=== PATIENT | male | born 1950 | race Caucasian/White ===

== ENCOUNTER 2017-01-09 08:30 | Emergency (ER) | payer BC ==
[~2017-01-09] VITALS: Ht 185.4 cm; Wt 92.4 kg
[~2017-01-09 08:30] MED LIST: ATEN-173 PO; CLC100 PO; EZET10TA63 PO; MELO15TA3 PO; OXYC-57 PO
[2017-01-09 08:33] VITALS: TEMP 36.5; Ht 185.4 cm; Wt 92.4 kg
[2017-01-09] MEDS ORDERED: ONDANSETRON INJ 2 MG/ML 2 ML VIAL IV STA (08:52)
[2017-01-09] MEDS ORDERED: KETOROLAC TROMETHAMINE 30 MG/ML VIAL IV STA (08:52)
[2017-01-09] MEDS ORDERED: MoRPHine SULFATE 10 MG/ML CARP/VIAL IV STA (08:52)
[2017-01-09] MEDS ORDERED: DEXAMETHASONE SOD INJ 10 MG/ML VIAL IV ONE (09:00)
[2017-01-09] MEDS ORDERED: PRLSR20 PO (09:26)
[2017-01-09] MEDS ORDERED: ASPI81TA28 PO (09:26)
[2017-01-09] MEDS ORDERED: OMEG10007 PO (09:26)
[2017-01-09] MEDS ORDERED: MoRPHine SULFATE 4 MG/ML 1 ML CARP\\VIAL IV STA ×2 (11:21→12:54)
--- NOTE | 2017-01-09 11:32 | EMERGENCY ROOM VISIT NOTE ---
History First contact with patient: 08:37 Chief Complaint: BACK PAIN Stated Complaint: BACK PAIN History of Present Illness The patient is a 66 year old male who presents to the Emergency Room with complaints of intractable back pain. The patient states that he is under the care of Dr. Loo for chronic low back pain and right radiculopathy. The patient states that he was on Percocet 5/325 mg tablets 2 tablets every 4 hours for 2 weeks along with prednisone without any relief of his pain. He states that he went to Dr. Loo yesterday telling him that the Percocet was not working for the pain. He then gave him tramadol. The patient states he took a tramadol yesterday and got sweaty and his heart was racing and couldn't sleep. He does not have any other pain medications at home. The patient states that he went to the clinic this morning thinking he could see Dr. loo but they told him he was in surgery. The patient therefore came to the emergency room for pain control. The patient states in the past he has tried the pain clinic and therapy without any relief of his pain. He had similar symptoms 8 years ago on his left side and was admitted and had surgery. The patient denies any loss of bowel or bladder control. The patient denies any saddle anesthesia. The patient states that the pain is a sharp pain in his right hip and goes down the right leg. Review of Systems 10 system review was performed and was negative unless stated otherwise history of present illness. Past Medical/Surgical History Prior back surgery Hypertension Social History Smoking Status: Never Smoker Smokeless Tobacco Use: No Alcohol Use: occasionally Drug Use: none Marital Status: Housing Status: lives with significant other Current/Historical Medications Scheduled Aspirin (Aspirin Ec), 81 MG PO DAILY Atenolol (Tenormin), 25 MG PO DIRECTED Docusate Sodium (Colace *), 100 MG PO BID Ezetimibe (Zetia), 10 MG PO DAILY Fish Oil ([place]lysses-3), 1 CAP PO DAILY Omeprazole (Prilosec), 20 MG PO DAILY Oxycodone/Acetaminophen 5MG/325MG (Percocet 5MG/325MG), 2 TABLETS PO Q4HR PRN Allergies Coded Allergies: Ketorolac Tromethamine (Verified Adverse Reaction, Severe, DELIRIUM, ) Physical Exam Vital Signs Date Time Temp Pulse Resp B/P (MAP) Pulse Ox O2 Delivery O2 Flow Rate FiO2 01/09/17 11:15 65 18 134/78 96 Room Air 01/09/17 09:32 60 18 132/85 98 Room Air 01/09/17 08:33 36.5 79 20 162/94 98 Room Air Physical Exam PHYSICAL EXAM: Vital Signs were reviewed: Reviewed Nurse's notes and agree. GENERAL: 66-year-old white male appears uncomfortable secondary to pain. MENTAL STATUS: Alert and oriented in no acute distress. LUNGS: Clear to auscultation without wheezes rales or rhonchi. CARDIAC: Regular rate and rhythm without murmur. LUMBAR SPINE: No gross bony abnormality noted. Patient is nontender to palpation over the spinous processes. He is tender to palpation over the right lower paravertebral region, left side nontender. He has limited range of motion in all directions secondary to pain. Muscle strength is 5 out of 5 bilateral lower extremities and symmetrical. NEURO: Patient is able to heel and toe walk without difficulty. Bilateral positive straight leg raise on the right. Patellar and Achilles reflexes are 2+. Sensation is intact to pinprick bilateral lower extremities. Medical Decision & Procedures Medications Administered Medications (Trade) Dose Ordered Sig/Chidi Route Start Time Stop Time Status Last Admin Dose Admin Dexamethasone Sodium Phosphate (Decadron Inj) 10 mg NOW ONCE IV 01/09/17 09:00 01/09/17 09:01 DC 01/09/17 09:09 10 MG Morphine Sulfate (MoRPHine SULFATE INJ) 6 mg NOW STAT IV 01/09/17 08:52 01/09/17 08:54 DC 01/09/17 09:10 6 MG Ondansetron HCl (Zofran Inj) 4 mg NOW STAT IV 01/09/17 08:52 01/09/17 08:54 DC 01/09/17 09:09 4 MG Morphine Sulfate (MoRPHine SULFATE INJ) 4 mg NOW STAT IV 01/09/17 11:21 01/09/17 11:22 DC 01/09/17 11:26 4 MG ED Course The patient was evaluated. The patient's EMR and medication list were reviewed. I also obtained the MRI which she performed at [facility] on 2016. This showed multilevel moderate to severe degenerative disc disease as well as global disparaging with high-grade foraminal narrowing at multiple levels. IV access was obtained. The patient was given morphine 6 mg IV and Decadron 10 mg IV. He was also given Zofran 4 mg IV push for associated nausea. The patient was reevaluated on multiple occasions. He received an additional 4 mg of morphine IV. I spoke with Dr. Tobar about the patient as well as the vocational case manager to have the patient admitted for at least observation for pain control. Dr. Tobar's PA, Mary evaluated the patient. She got him an appointment tomorrow in the office and the patient is in agreement to go home on pain medications. She will be prescribing pain medications as well as Valium for the patient. The patient was in agreement with treatment plan and has an appointment scheduled tomorrow at 9:40 AM. The patient was discharged home in stable condition. Medical Decision The patient has failed outpatient treatment for his intractable chronic back pain. Dr. Loo would not be available to operate on the patient until next week therefore the patient was in agreement to continue outpatient treatment at this time. Impression Primary Impression: Intractable low back pain Departure Information Dispostion Home / Self-Care Condition GOOD Referrals Meg Yan (PCP) Aman Loo M.D. Forms HOME CARE DOCUMENTATION FORM, IMPORTANT VISIT INFORMATION Patient Instructions My [employer] [place] Additional Instructions Take medications as prescribed by your spinal surgeon. Appointment tomorrow at 9:40 AM with Noah. Further evaluation and treatment per spinal surgery.
[2017-01-09] MEDS ORDERED: DIAZ-165 PO (12:42)
[2017-01-09] MEDS ORDERED: HYDR-5688 PO (12:42)
--- NOTE | 2017-01-09 12:50 | Orthopedic Consultation ---
Orthopedic Consultation Date of Consultation: Jan 09, 2017. Attending Physician: History of Present Illness 66 yo gentleman known to Dr. Loo. Hes' had prior surgery by Dr. Loo 8 years ago. He has recently been into the office for same complaints. he reports for the past 3-4 weeks he's had severe Right leg pain including buttock, thigh, calf, dorsum foot. Left leg aymptomatic. Denies bowel/bladder dysfunction. He's been given recent oral steroids and Percocet by Dr. Loo's office. Trialed PT as well. He reports any type of standing or activity reproduces pain. Sitting in her semireclined position or flexing his right leg is pale. Past Medical/Surgical History Medical Problems: (1) Intractable low back pain Status: Acute Social History Smoking Status: Never Smoker Smokeless Tobacco Use: No Drug Use: none Marital Status: Housing Status: lives with significant other Allergies Coded Allergies: Ketorolac Tromethamine (Verified Adverse Reaction, Severe, DELIRIUM, ) Home Medications Scheduled Aspirin (Aspirin Ec), 81 MG PO DAILY Atenolol (Tenormin), 25 MG PO DIRECTED Docusate Sodium (Colace *), 100 MG PO BID Ezetimibe (Zetia), 10 MG PO DAILY Fish Oil ([place]atter-3), 1 CAP PO DAILY Omeprazole (Prilosec), 20 MG PO DAILY Oxycodone/Acetaminophen 5MG/325MG (Percocet 5MG/325MG), 2 TABLETS PO Q4HR PRN Scheduled PRN Diazepam (Valium), 5 MG PO TID PRN for prn Hydrocodone/Acetaminophen 5MG/325MG (Thomas 5MG/325MG), 2 TABLETS PO Q4 PRN for Pain Physical Exam Date Time Temp Pulse Resp B/P (MAP) Pulse Ox O2 Delivery O2 Flow Rate FiO2 01/09/17 11:15 65 18 134/78 96 Room Air 01/09/17 09:32 60 18 132/85 98 Room Air 01/09/17 08:33 36.5 79 20 162/94 98 Room Air Neurologic/Psych: + motor weakness (intact), + pertinent finding (negative stright leg raising b/l) Lymphatic: + cervical node abnormality Assessment & Plan Follow up Noah Colon tomorrow at 9:40am at [facility]. Valium 5mg one po q8hrs prn #10 Thomas 5/325 1-2 po q 4 hrs prn #30
[2017-01-09 13:12] VITALS: BP 138/74; PULSE 68; O2SAT 95
[2017-01-23] MEDS ORDERED: OXYC1TAB3 PO (11:48)
== END 2017-01-09 13:11 | disposition home or self-care (01) ==
LOC: C.EDB 08:33
DX: M54.5 Low back pain (principal); R11.0 Nausea; I10 Essential (primary) hypertension; G89.29 Other chronic pain; M54.10 Radiculopathy, site unspecified; Z79.82 Long term (current) use of aspirin; Z79.899 Other long term (current) drug therapy; Z88.8 Allergy status to other drugs, medicaments and biological substances

== ENCOUNTER 2017-01-20 12:53 | Observation (INO) | payer BC ==
[~2017-01-20] VITALS: Ht 185.4 cm; Wt 95.2 kg
[2017-01-20] VITALS (7 sets, daily range): BP systolic 101–150; BP diastolic 67–95; PULSE 53–65; TEMP 36.4–36.6; O2SAT 94–96; Ht 185.4 cm; Wt 95.2 kg
[~2017-01-20 12:53] MED LIST changes: +ASPI81TA28 PO; +DIAZ-165 PO; +HYDR-5688 PO; -MELO15TA3 PO; +OMEG10007 PO; +PRLSR20 PO
[2017-01-20] MEDS ORDERED: FAMO20TA11 PO (14:36)
[2017-01-20] MEDS ORDERED: OXYC1TAB3 PO (14:37)
[2017-01-20] MEDS ORDERED: GABA-113 PO (14:39)
[2017-01-20] MEDS ORDERED: PSYL58.636 PO (14:47)
[2017-01-20] MEDS ORDERED: DOCU-94 PO (14:47)
[2017-01-20] MEDS ORDERED: VENL37.593 PO (14:48)
--- NOTE | 2017-01-20 14:50 | Anesthesiology Progress Note ---
Anesthesia Progress Note Date of Service Jan 20, 2017. Progress Notes Mr. Farfan is slated for a lumbar decompression with Dr. Loo on 01/21/17. Allergies to toradol (delerium). PSH to include back surgery (8 years ago) and tonsillectomy as a child without anesthesia complications. PMH significant for HTN (controlled), HLD, GERD (controlled), intractable back pain and depression. Patient is a never smoker with greater than 4 METS. Labs pending. Will order ECG as one wasn't found on file. Airway exam notable for MP 3 with FROM of neck. Patient advised to be NPO after midnight. Patient consented for GETA, all questions answered.
[2017-01-20] MEDS ORDERED: LORAZEPAM 1 MG TAB PO PRN (16:00)
[2017-01-20] MEDS ORDERED: PROMETHAZINE HCL INJ 12.5 MG in SODIUM CHLORIDE 0.9% 50ML 50 ML IV PRN (16:00)
[2017-01-20] MEDS ORDERED: NALOXONE HCL 0.4 MG/1 ML VIAL/CARP IV PRN (16:00)
[2017-01-20] MEDS ORDERED: ONDANSETRON INJ 2 MG/ML 2 ML VIAL IV PRN (16:00)
[2017-01-20] MEDS ORDERED: ACETAMINOPHEN 325 MG TAB PO PRN (16:00)
[2017-01-20] MEDS ORDERED: LORAZEPAM INJ 1 MG in SYRINGE 0 ML IV PRN (16:00)
[2017-01-20] MEDS ORDERED: IV FLUIDS COMPLETED PRN (16:15)
[2017-01-20] MEDS: SODIUM CHLORIDE 0.9% 1000ML 1,000 ML IV SCH (16:21)
[2017-01-20] MEDS: HYDROmorphone HCL 0.5MG/ML 50 ML CASSETTE IV PRN ×2 (16:23→19:09)
[2017-01-20 16:43] LABS: BASO % 0.3 %; BASO ABS # 0.02 K/uL (0-0.2); COMPLETE YES; EOS % 1.1 %; HEMATOCRIT 47.1 % (42-52); IG% 0.3 %; LYMPH % 27.9 %; LYMPH ABS # 1.96 K/uL (1.2-3.4); MEAN CELL VOLUME 89.7 fL (80-100); MEAN CORPUSCULAR HGB CONC 35.7 g/dl (32-36); MEAN PLATELET VOLUME 9.4 fL (7.4-10.4); MONO % 10.4 %; PLATELET COUNT 252 K/uL (130-400); RED BLOOD COUNT 5.25 M/uL (4.7-6.1); WHITE BLOOD COUNT 7.03 K/uL (4.8-10.8)
[2017-01-20 17:09] LABS: CALCIUM 9.7 mg/dl (8.5-10.1); CREATININE 0.81 mg/dl (0.60-1.40); POTASSIUM 3.6 mmol/L (3.5-5.1)
--- NOTE | 2017-01-20 17:29 | DIAGNOSTIC IMAGING REPORT ---
CHEST 2 VIEWS ROUTINE CLINICAL HISTORY: preop preoperative evaluation COMPARISON STUDY: 01/19/2009 FINDINGS: The bones soft tissues and hemidiaphragms are normal. The cardiomediastinal silhouette is normal. The lungs are clear. The pulmonary vasculature is normal. IMPRESSION: Negative chest. The above report was generated using voice recognition software. It may contain grammatical, syntax or spelling errors. Electronically signed by: Darshan Garcia M.D. 01/20/2017 5:27 PM Dictated Date/Time: 01/20/2017 5:27 PM
[2017-01-20] MEDS: DEXAMETHASONE INJ 8 MG in SYRINGE 0 ML IV SCH (17:47)
[2017-01-20] MEDS: GABAPENTIN 300 MG CAP PO SCH (20:58)
[2017-01-20] MEDS: FAMOTIDINE 20 MG TAB PO SCH (20:58)
[2017-01-21] MEDS: DEXAMETHASONE INJ 8 MG in SYRINGE 0 ML IV SCH ×2 (01:10→08:54)
[2017-01-21 03:17] VITALS: BP 120/75; PULSE 59; TEMP 36.7; O2SAT 93
[2017-01-21] MEDS: CEFAZOLIN 2000 MG/60 ML D5W 60 ML IV SCH ×2 (06:00→18:35)
[2017-01-21] MEDS: HYDROmorphone HCL 0.5MG/ML 50 ML CASSETTE IV PRN (07:08)
[2017-01-21 07:48] VITALS: BP 118/82; PULSE 66; TEMP 36.7; O2SAT 94
[2017-01-21 08:01] VITALS: O2SAT 94
[2017-01-21] MEDS: FAMOTIDINE 20 MG TAB PO SCH ×2 (08:53→21:13)
[2017-01-21] MEDS: EZETIMIBE 10MG TAB PO SCH (08:54)
[2017-01-21] MEDS: VENLAFAXINE HCL XR 37.5 MG CAPXR PO SCH (08:54)
[2017-01-21] MEDS: GABAPENTIN 300 MG CAP PO SCH ×3 (08:56→21:00)
[2017-01-21] MEDS ORDERED: MIDAZOLAM HCL 1 MG/ML 2ML VIAL ONE (10:49)
[2017-01-21] MEDS ORDERED: DEXAMETHASONE SOD INJ 4 MG/ML VIAL ONE (10:49)
[2017-01-21] MEDS ORDERED: GLYCOPYRROLATE INJ 0.2 MG/ML VIAL ONE (10:49)
[2017-01-21] MEDS ORDERED: FENTANYL CITRATE INJ 50 MCG/1 ML 2 ML VIAL ONE (10:49)
[2017-01-21] MEDS ORDERED: HYDROmorphone INJ 2 MG/ML SYR/VIAL ONE (10:49)
[2017-01-21] MEDS ORDERED: ONDANSETRON INJ 2 MG/ML 2 ML VIAL ONE (10:49)
[2017-01-21] MEDS ORDERED: NEOSTIGMINE METHYLSULFATE 1 MG/ML 10ML VIAL ONE (10:49)
[2017-01-21] MEDS ORDERED: LIDOCAINE HCL 2% 2 ML VIAL (20MG/ML) ONE (10:49)
[2017-01-21] MEDS ORDERED: PROPOFOL IV EMULSION 10 MG/ML 20 ML VIAL IV ONE (10:49)
[2017-01-21] MEDS ORDERED: ROCURONIUM BROMIDE 10 MG/ML 5 ML VIAL ONE (10:49)
--- NOTE | 2017-01-21 12:33 | History and Physical ---
History & Physical Date Jan 21, 2017. Chief Complaint LBP and R hip pain History of Present Illness The patient is a 66 year old male with complaints of severe R hip pain that began without injury. He was being treated as an outpatient but had poor pain control despite narcotics and was admitted to hospital for IV meds. He reports improved pain on OPERATING ROOM RN. He describes numbness in R foot. No left LE pain or numbness. He has slight RLE weakness. His walking was severely limited. MRI shows multilevel DDD, facet djd, stenosis, and degenerative scoliosis. Neural compression is greatest on right at L3-4 and L4-5 both in the lateral recess and foramina. he denies incontinence. hx of L L2-3 far lateral discectomy. Past Medical/Surgical History Medical Problems: (1) HNP (herniated nucleus pulposus) 2. HTN 3. GERD 4. depression 5. PRIOR LUMBAR SURGERY Additional History Hepatic Disease: No Endocrine Disorder: No Kidney Disease: No Hypertension: No Heart Disease: No Bleeding Tendencies: No Infectious Diseases: No Allergies Coded Allergies: Ketorolac Tromethamine (Verified Adverse Reaction, Severe, DELIRIUM, ) Home Medications Scheduled Aspirin (Aspirin Ec), 81 MG PO DAILY Atenolol (Tenormin), 25 MG PO DIRECTED Ezetimibe (Zetia), 10 MG PO DAILY Famotidine (Pepcid), 20 MG PO BID Fish Oil ([place]-3), 1 CAP PO DAILY Gabapentin (Neurontin), 300 MG PO TID Psyllium (Metamucil Fiber), Unknown Dose PO BID Venlafaxine Hcl (Venlafaxine Extended Rel), 37.5 MG PO DAILY Scheduled PRN Docusate Sodium (Colace), 1 CAP PO BID PRN for Constipation Oxycodone Ir (Roxicodone Ir), 5 MG PO Q4H PRN for Pain Physical Examination Eyes: normal inspection, sclerae normal Head: normocephalic, atraumatic Neck: supple, no adenopathy, trachea midline Respiratory/Chest: lungs clear, normal breath sounds, no respiratory distress Cardiovascular: regular rate, rhythm, no murmur Extremities: normal inspection, normal range of motion Neurologic/Psych: no motor/sensory deficits (excpet for sl decrease sensation dorsum of R foot. STR in DF on R 4+/5), alert, normal reflexes, oriented x 3 Diagnosis Lumbar stenosis and scoliosis L3-4 and L4-5 right Plan of Treatment I recommend Right L3-4 and L4-5 decompression. Risk of incomplete relief and need for a more extensive fusion reviewed. continue OPERATING ROOM RN for pain control.
[2017-01-21] MEDS ORDERED: NURSING VERBAL MED ORDER ONE (13:15)
[2017-01-21] MEDS: MORPHINE SULFATE 1 MG/ML 50 ML PCA SYR IV PRN ×2 (15:11→23:05)
[2017-01-21 15:20] VITALS: BP 129/82; PULSE 74; TEMP 36.6; O2SAT 93
[2017-01-21] MEDS: SODIUM CHLORIDE 0.9% 1000ML 1,000 ML IV SCH (15:22)
[2017-01-21 20:35] VITALS: BP 141/89; PULSE 69; TEMP 36.6; O2SAT 98
[2017-01-21] MEDS: DOCUSATE SODIUM 100 MG CAP PO PRN (21:16)
[2017-01-21 23:03] VITALS: BP_SYST 131; BP_SYST 135; BP_DIAS 69; BP_DIAS 83; PULSE 70; PULSE 89; TEMP 36.4; O2SAT 96; O2SAT 98
[2017-01-22 03:16] VITALS: BP 119/79; PULSE 60; TEMP 36.6; O2SAT 96
[2017-01-22] MEDS: MORPHINE SULFATE 1 MG/ML 50 ML PCA SYR IV PRN ×2 (06:41→07:12)
[2017-01-22 07:48] VITALS: BP 128/81; PULSE 60; TEMP 36.8; O2SAT 95
[2017-01-22 07:50] VITALS: O2SAT 95
[2017-01-22] MEDS: GABAPENTIN 300 MG CAP PO SCH ×3 (08:51→20:34)
[2017-01-22] MEDS: VENLAFAXINE HCL XR 37.5 MG CAPXR PO SCH (08:52)
[2017-01-22] MEDS: FAMOTIDINE 20 MG TAB PO SCH ×2 (08:52→20:35)
[2017-01-22] MEDS: EZETIMIBE 10MG TAB PO SCH (08:52)
[2017-01-22] MEDS ORDERED: NURSING VERBAL MED ORDER ONE (11:30)
[2017-01-22] MEDS: HYDROmorphone HCL 0.5MG/ML 50 ML CASSETTE IV PRN ×3 (12:01→23:02)
[2017-01-22] MEDS: SODIUM CHLORIDE 0.9% 1000ML 1,000 ML IV SCH (15:35)
[2017-01-22 16:20] VITALS: BP 143/93; PULSE 59; TEMP 36.4; O2SAT 92
[2017-01-22] MEDS: DOCUSATE SODIUM 100 MG CAP PO PRN (20:34)
[2017-01-22 23:30] VITALS: PULSE 71; TEMP 36.8; O2SAT 97
[2017-01-22 23:49] VITALS: BP 148/86
[2017-01-23] VITALS (10 sets, daily range): BP systolic 116–167; BP diastolic 70–98; PULSE 67–98; TEMP 36.6–37.1; O2SAT 91–97
[2017-01-23] MEDS: HYDROmorphone HCL 0.5MG/ML 50 ML CASSETTE IV PRN (07:12)
[2017-01-23] MEDS ORDERED: MIDAZOLAM HCL 1 MG/ML 2ML VIAL ONE (08:21)
[2017-01-23] MEDS ORDERED: FENTANYL CITRATE INJ 50 MCG/1 ML 2 ML VIAL ONE (08:21)
[2017-01-23] MEDS: GABAPENTIN 300 MG CAP PO SCH ×3 (09:00→20:58)
[2017-01-23] MEDS ORDERED: METOPROLOL TARTRATE 1 MG/ML VIAL ONE (09:16)
[2017-01-23] MEDS ORDERED: THROMBIN 5000 UNITS KIT ONE (09:23)
[2017-01-23] MEDS ORDERED: BUPIVACAINE/EPINEPHRINE 0.5% MPF 1:200,000 10 ML VIAL ONE ×2 (09:23→10:05)
[2017-01-23] MEDS ORDERED: BACITRACIN 50000 UNIT VIAL ONE (09:24)
--- NOTE | 2017-01-23 09:25 | History & Physical Bridge Note ---
H&P Re-Evaluation Bridge Note: I have examined the patient, reviewed the History & Physical and in the interval since the performance of the History & Physical I have noted the following changes of clinical significance: No changes noted
[2017-01-23] MEDS ORDERED: NALOXONE HCL 0.4 MG/1 ML VIAL/CARP IV PRN (09:30)
[2017-01-23] MEDS ORDERED: MEPERIDINE HCL 25 MG/ML CARP IV PRN (09:30)
[2017-01-23] MEDS ORDERED: LABETALOL HCL IV 5 MG/ML 20ML IV PRN (09:30)
[2017-01-23] MEDS ORDERED: ATROPINE SULFATE 0.1 MG/ML 5ML SYR IV PRN (09:30)
[2017-01-23] MEDS ORDERED: FLUMAZENIL 0.1 MG/1 ML 10 ML VIAL IV PRN (09:30)
[2017-01-23] MEDS ORDERED: ONDANSETRON INJ 2 MG/ML 2 ML VIAL IV PRN ×2 (09:30→12:00)
[2017-01-23] MEDS ORDERED: EpHEDrine SULFATE INJ 50 MG/ML AMP IV PRN (09:30)
[2017-01-23] MEDS ORDERED: HYDROmorphone INJ 1 MG/ML SYR IV PRN (09:30)
[2017-01-23] MEDS ORDERED: MoRPHine SULFATE 10 MG/ML CARP/VIAL IV PRN (09:30)
[2017-01-23] MEDS ORDERED: PHENYLEPHRINE 100MCG/ML 5ML SYR IV PRN (09:30)
[2017-01-23] MEDS ORDERED: CEFAZOLIN IV 2,000 MG/60 ML D5W IV ONE (09:33)
[2017-01-23] MEDS ORDERED: NURSING VERBAL MED ORDER ONE ×3 (09:45→19:45)
[2017-01-23] MEDS ORDERED: PROPOFOL IV EMULSION 10 MG/ML 20 ML VIAL IV ONE (10:06)
[2017-01-23] MEDS ORDERED: GLYCOPYRROLATE INJ 0.2 MG/ML VIAL ONE (10:06)
[2017-01-23] MEDS ORDERED: ROCURONIUM BROMIDE 10 MG/ML 5 ML VIAL ONE (10:06)
[2017-01-23] MEDS ORDERED: ONDANSETRON INJ 2 MG/ML 2 ML VIAL ONE (10:06)
[2017-01-23] MEDS ORDERED: DEXAMETHASONE SOD INJ 4 MG/ML VIAL ONE ×2 (10:06→10:07)
[2017-01-23] MEDS ORDERED: LIDOCAINE HCL 2% 2 ML VIAL (20MG/ML) ONE (10:06)
[2017-01-23] MEDS ORDERED: LARYING-O-JET KIT (LTA) ONE ×2 (10:07)
[2017-01-23] MEDS ORDERED: HYDROmorphone INJ 2 MG/ML SYR/VIAL ONE (10:07)
[2017-01-23] MEDS ORDERED: EpHEDrine SULFATE 50MG/5ML SYR ONE (10:09)
[2017-01-23] MEDS ORDERED: SUCCINYLCHOLINE CHLORIDE 20 MG/ML 10 ML VIAL IV ONE (10:14)
[2017-01-23] MEDS ORDERED: FLOSEAL HEMOSTATIC MATRIX 10ML TOP ONE (11:19)
--- NOTE | 2017-01-23 11:43 | [facility] Post Operative Brief Note ---
Immediate Operative Summary Operative Date Jan 23, 2017. Pre-Operative Diagnosis L3-5 Spinal Stenosis Post-Operative Diagnosis Same as preop Procedure(s) Performed L3-[address] Aman Loo Visual Training Aide Surgeon(s) Rachael Colon PAC Estimated Blood Loss 150ML Findings see op note Specimens None
--- NOTE | 2017-01-23 11:46 | [facility] Operative Report ---
Operative Report Operative Date Jan 23, 2017. Pre-Operative Diagnosis L3-5 Spinal Stenosis Post-Operative Diagnosis Same as preop Procedure(s) Performed L3-[address] Aman Loo Crayon Grader Surgeon(s) Rachael Colon PAC Estimated Blood Loss 150ML Findings see below Specimens None Complication(s) None Description of Procedure DESCRIPTION OF PROCEDURE: After identification of patient and operative level, the patient was brought to the OR where they underwent induction of general anesthesia. They were positioned prone on Benjamin OR table. All bony prominences were well padded. Care was taken to avoid pressure on the periorbital area. Lumbosacral area was sterilely prepped and draped in usual fashion. Antibiotics were administered. Time-out was performed. Level was confirmed and skin incision was localized with spinal needle. I infiltrated the skin with Marcaine and placed the incision over the spinous process of L3-5 , I exposed the L3-4 and L4-5 interlaminar windows. After mobilization of the fascia, I identified the operative level with fluoroscopy and a marker and then marked this level. A blacksmith helper retractor was placed and a small laminotomy was created under the caudal edge of L3 and L4. I removed the medial facets of L3-4 and L4-5. I removed the ligamentum flavum and identified the traversing nerve root, then protected it with a nerve root retractor and then identified disc protrusion at L4-5. I removed the capsule around the disc fragment, removed loose disc fragments and swept and explored the disc space, and confirmed no further fragments were present. I performed as wide a foraminotomy as I could accomplish without destabilizing the facet at each level. I then reconfirmed level, confirmed the nerve was decompressed at L3, 4 , and 5 by passing a probe along each and irrigated with bacitracin solution, applied FloSeal and closed in layered fashion. All sponge and needle counts were correct at the end of the case. I attest to the content of the Intraoperative Record and any orders documented therein. Any exceptions are noted below. I attest to the content of the Intraoperative Record and any orders documented therein. Any exceptions are noted below.
[2017-01-23] MEDS ORDERED: OXYC1TAB3 PO (11:48)
--- NOTE | 2017-01-23 11:49 | Discharge Instructions ---
Discharge Instructions Date of Service Jan 23, 2017. Admission Reason for Admission: Low Back Pain Discharge Discharge Diagnosis / Problem: same Discharge Goals Goal(s): Decrease discomfort Activity Recommendations Activity Limitations: per Instructions/Follow-up section . Instructions / Follow-Up Instructions / Follow-Up ACTIVITY RECOMMENDATIONS: SELF CARE INSTRUCTIONS AFTER A LAMINECTOMY 1. No prolonged sitting (less than 30 minutes for the first 3 weeks after surgery). 2. No bending, lifting more than 5 pounds, or twisting (roll like a log when turning in bed). 3. You may shower 3 days after surgery if no drainage from wound. Thoroughly dry wound. Do not soak in the tub. 4. Please walk as much as you can for exercise. Gradually increase the distance that you walk as your endurance increases. 5. You may drive in 7-10 days if you are comfortable and no longer requiring pain medications. SPECIAL CARE INSTRUCTIONS: VERY IMPORTANT TO READ AND REVIEW A. Your surgical incision has been closed with a cosmetic suture under the skin that will dissolve in about 6 weeks. In 14 days, you can use a pair of clean scissors and cut the suture that is left outside of the skin at the ends of your incision. B. Complications are uncommon, but please contact us if you have any signs or symptoms of: 1. wound infection (fever higher than 102.5 degrees F, redness, separation of wound, drainage, or increasing pain from the incision) 2. blood clots in legs (pain, swelling, redness and warmth in legs) 3. urinary tract infection (fever higher than 102.5 degrees, burning upon urination or increased frequency of urination) 4. nerve problems (inability to walk on your toes or heels, numbness, loss of bowel or bladder control) 5. any other symptoms that concern you. C. Please call the office at if you have any concerns or questions about your operation or recovery. MANAGING PAIN AFTER SPINAL SURGERY 1. Narcotic medication is intended for short-term use and will be provided for surgical pain. Surgical pain usually lasts for a period of 4-6 weeks. Narcotic medication includes Percocet, Vicodin, Darvocet, Tylenol #3 or Lortab. 2. Longer-term pain is more appropriately treated with non-narcotic medication such as Tylenol ES. 3. Muscle spasm is not appropriately treated with narcotics. Muscle relaxers such as Soma, Flexeril or Skelaxin can be used along with Tylenol ES. 4. Remember that we all live with some "aches and pains". This is not unusual or uncommon after an injury or as we get older. 5. We will provide appropriate medication within the normal guidelines of their prescribed use. We will also be very cautious and aware of potential abuse and extended duration of patients' medication needs. 6. Please allow 2-3 days to process refills. Prescriptions will not be mailed but must be picked up at the office. FOLLOW UP VISIT: Keep your scheduled follow-up appointment. Any questions, please call the office at . Current Hospital Diet Patient's current hospital diet: Regular Diet Discharge Diet Recommended Diet: Regular Diet Procedures Procedures Performed: L3-5 Right Decompression Pending Studies Studies pending at discharge: no Medical Emergencies . Who to Call and When: Medical Emergencies: If at any time you feel your situation is an emergency, please call 911 immediately. . Non-Emergent Contact Non-Emergency issues call your: Surgeon . "Provider Documentation" section prepared by Aman Loo. . VTE Core Measure Inpt VTE Proph given/why not?: [facility] Drug Monitoring Program Search Results: patient reviewed within database, no issues identified ( checked by MARKUS)
[2017-01-23] MEDS ORDERED: OXYCODONE/ACETAMINOPHEN 5-325 TAB PO PRN ×2 (12:00)
[2017-01-23] MEDS ORDERED: MoRPHine SULFATE 4 MG/ML 1 ML CARP\\VIAL IV PRN (12:00)
--- NOTE | 2017-01-23 12:02 | DIAGNOSTIC IMAGING REPORT ---
SPINE ONE VIEW, ANY LEVEL CLINICAL HISTORY: 66 years-old Male presenting with L3-5 DECOMPRESSION. TECHNIQUE: 1 fluoroscopic spot image of the lumbar spine was obtained and lateral position as part of an intraoperative procedure. COMPARISON: 2008. FINDINGS/IMPRESSION: Grossly anatomic alignment of the lumbar spine. Surgical instruments project over the spinal canal. Please see separately dictated surgical report for further details. Fluoroscopy dosage (mGy): Not available. Fluoroscopy time: 3 seconds. Number of fluoroscopic spot images: 1. Electronically signed by: Jan Michael M.D. 01/23/2017 12:00 PM Dictated Date/Time: 01/23/2017 11:59 AM
--- NOTE | 2017-01-23 12:22 | Anesthesiology Progress Note ---
Anesthesia Post Op Note Date & Time Jan 23, 2017 at 12:22 Vital Signs Pain Intensity: 2 Vital Signs Past 12 Hours Date Time Temp Pulse Resp B/P (MAP) Pulse Ox O2 Delivery O2 Flow Rate FiO2 01/23/17 12:10 36.6 68 16 148/96 94 Room Air 01/23/17 11:36 36.6 55 16 174/96 100 Oxymask 10 01/23/17 08:52 36.7 88 18 153/97 (115) 93 Room Air 01/23/17 07:38 36.7 96 20 142/91 (108) 91 Room Air 01/23/17 07:10 Room Air 01/23/17 03:51 36.6 78 16 167/88 (114) 96 Room Air Notes Mental Status: alert / awake / arousable, participated in evaluation Pt Amnestic to Procedure: Yes Nausea / Vomiting: adequately controlled Pain: adequately controlled Airway Patency, RR, SpO2: stable & adequate BP & HR: stable & adequate Hydration State: stable & adequate Anesthetic Complications: no major complications apparent
[2017-01-23] MEDS ORDERED: SODIUM CHLORIDE 0.9% 1000ML 1,000 ML IV SCH (12:30)
[2017-01-23] MEDS: VENLAFAXINE HCL XR 37.5 MG CAPXR PO SCH (13:26)
[2017-01-23] MEDS: FAMOTIDINE 20 MG TAB PO SCH ×2 (13:27→20:58)
[2017-01-23] MEDS: EZETIMIBE 10MG TAB PO SCH (13:27)
[2017-01-23] MEDS: OXYCODONE HCL IR 5 MG TAB (IMMEDIATE RELEASE) PO PRN ×2 (17:19→21:01)
[2017-01-23] MEDS: HYDROmorphone INJ 0.5 MG/0.5 ML SYR IV PRN ×2 (19:58→22:06)
[2017-01-23] MEDS ORDERED: DEXAMETHASONE INJ 10 MG in SYRINGE 0 ML IV ONE (20:00)
[2017-01-24 03:58] VITALS: BP 120/74; PULSE 89; TEMP 36.5; O2SAT 96
[2017-01-24 07:04] VITALS: BP 106/68; PULSE 82; TEMP 36.9; O2SAT 94
--- NOTE | 2017-01-24 08:22 | Anesthesiology Progress Note ---
Anesthesia Post Op Note Date & Time Jan 24, 2017 at 08:19 Vital Signs Pain Intensity: 4.0 Vital Signs Past 12 Hours Date Time Temp Pulse Resp B/P (MAP) Pulse Ox O2 Delivery O2 Flow Rate FiO2 01/24/17 07:04 36.9 82 19 106/68 (81) 94 Room Air 01/24/17 03:58 36.5 89 16 120/74 (89) 96 Room Air 01/23/17 23:14 37.1 67 16 145/95 (112) 96 Room Air 01/23/17 23:05 Room Air Notes Mental Status: alert / awake / arousable, participated in evaluation Pt Amnestic to Procedure: Yes Nausea / Vomiting: adequately controlled Pain: adequately controlled Airway Patency, RR, SpO2: stable & adequate BP & HR: stable & adequate Hydration State: stable & adequate Anesthetic Complications: no major complications apparent Patient reports some confusion during the night, but has completely resolved this morning.....he is completely oriented X3, and reports a pain level of #5.
[2017-01-24] MEDS: VENLAFAXINE HCL XR 37.5 MG CAPXR PO SCH (08:59)
[2017-01-24] MEDS: FAMOTIDINE 20 MG TAB PO SCH (08:59)
[2017-01-24] MEDS: GABAPENTIN 300 MG CAP PO SCH (08:59)
[2017-01-24] MEDS: EZETIMIBE 10MG TAB PO SCH (09:00)
[2017-01-24] MEDS ORDERED: METH4PAK PO (10:41)
[2017-01-24] MEDS: OXYCODONE HCL IR 5 MG TAB (IMMEDIATE RELEASE) PO PRN (11:00)
[2017-01-24 11:03] VITALS: BP 106/68; PULSE 82; TEMP 36.9; O2SAT 94
--- NOTE | 2017-02-04 09:25 | Discharge Summary ---
Orthopedic Discharge Summary Admission Date/Reason Jan 20, 2017 at 13:31 Low Back Pain. Discharge Date/Disposition Jan 24, 2017 Home Diagnosis Principal Diagnosis: same Procedure(s) Performed lumbar decompression Medication Reconciliation Continued Medications: Aspirin (Aspirin Ec) 81 Mg Tab 81 MG PO DAILY Atenolol (Tenormin) 25 Mg Tab 25 MG PO DIRECTED, 0 Refills Docusate Sodium (Colace) 100 Mg Cap 1 CAP PO BID PRN for Constipation for 15 Days, #30 CAP Ezetimibe (Zetia) 10 Mg Tab 10 MG PO DAILY, 0 Refills Famotidine (Pepcid) 20 Mg Tab 20 MG PO BID, TAB Fish Oil ([place]-3) 1 Ea Cap 1 CAP PO DAILY, CAP Gabapentin (Neurontin) 300 Mg Cap 300 MG PO TID, CAP Oxycodone Ir (Roxicodone Ir) 5 Mg Tab 5 MG PO Q4H PRN for Pain, #60 TAB (This prescription has been renewed) Psyllium (Metamucil Fiber) 51.7 % Dejan Unknown Dose PO BID Venlafaxine Hcl (Venlafaxine Extended Rel) 37.5 Mg Cap 37.5 MG PO DAILY, CAP Admission Physical Exam As per Admitting History & Physical. Hospital Course He was admitted for pain control and intended operative intervention for lumbar stenosis and HNP with a severe radiculopathy. He tolerated procedure without complications, ambulated, had pain controlled, was hemodynamically stable and was discharged in stable condition. Discharge Instructions Please refer to the electronic Patient Visit Report (Discharge Instructions) for additional information.
== END 2017-01-24 11:40 | disposition home or self-care (01) ==
LOC: C.MSW 13:31 → INTOOBSV 13:31
PROVIDERS: ADMIT Orthopaedic Surgery Orthopaedic Surgery of the Spine; ATTEND Orthopaedic Surgery Orthopaedic Surgery of the Spine
DX: M48.06 Spinal stenosis, lumbar region (principal); M51.26 Other intervertebral disc displacement, lumbar region; K21.9 Gastro-esophageal reflux disease without esophagitis; F32.9 Major depressive disorder, single episode, unspecified; Z79.82 Long term (current) use of aspirin